=== PATIENT | male | born 1965 | race Caucasian/White ===

== ENCOUNTER 2020-10-08 13:01 | Emergency (ER) | payer OTHER ==
[~2020-10-08] VITALS: Ht 193 cm; Wt 104.3 kg
--- NOTE | ~2020-10-08 | EMS ---
[facility] [place] [address] EMS Patient Care Report Name: SANDRA CHENG Room: [facility]#: [id number] Admission: 10/08/20 Attend Phys: Discharge: 10/08/20 Date of : 63 Report #: [id number] THIS REPORT FOR: //name// Report Transmitted: 10/13/2020 10:19 EMS Care Summary [employer] [facility] Incident [phone] @ 10/08/2020 12:17 [address]ident [address] [place] [address] Patient SANDRA CHENG Male, 55 Years 1965 Patient Address Patient History Alcohol Abuse, Patient Allergies No known allergies, Patient Medications Ibuprofen, Chief Complaint chest pain Disposition Transported No Lights/[place] Dispatch Reason Chest Pain (Non-Traumatic) Transported To [facility] Narrative 55 y/o male pt found sitting upright in car upon EMS arrival. Pt was alert and oriented and complained of chest pain and vomiting beginning about 20 minutes prior to EMS arrival. Pt also complains of shortness of breath. Pt was moved to cot and placed in ambulance for further assessment. Once in ambulance, initial vitals were assessed and he was placed on classroom monitor. 12-Lead EKG was attempted but took longer than expected to obtain due to severe artifact from [address] [place] [address] EMS Patient Care Report Name: SANDRA CHENG Room: [facility]#: [id number] Admission: 10/08/20 Attend Phys: Discharge: 10/08/20 Date of : 63 Report #: [id number] patient movement. Pt was laid flat and EKG was obtained showing NSR. Lung sounds were assessed revealing expiratory wheezing in upper lobes. Room air oxygen saturation was at 85%, so patient was placed on 3LPM via NC. An 18G IV was established in the LAC with saline lock. Pt admits to daily ETOH use and admits to current ETOH use jusr prior to our arrival. He states that he drinks about 20-24 beers/day. He also states that he has Hep C. He denies any prescription medications currently, but later states that he would take them if "they would just give them to me." He also states that he is homeless and sleeps outside daily. Pt remained alert and oriented throughout transport and was continuously monitored and reassessed with no further complaints or changes. Pt denies nausea medication when offered. Pt care was transferred to RN upon arrival to [facility]. Initial Vitals @12:30P: 81,R: 18,BP: 136/96,Pain: 8/10,GCS: 15,Glucose: 117,SpO2: 85,Revised Trauma: 12,LA Suspected: false @12:49P: 77,R: 18,BP: 119/83,Pain: 8/10,GCS: 15,Temp: 97.1F,SpO2: 92,Revised Trauma: 12,LA Suspected: false @12:52P: 80,R: 18,BP: 145/122,Pain: 8/10,GCS: 15,SpO2: 91,Revised Trauma: 12, Impression Chest Pain / Discomfort Procedures @12:42Saline Lock 10cc (18 ga) Site: Antecubital-LeftResponse: UnchangedSucceeded Timeline 12:17,Call Received 12:17,Dispatched 12:19,En Route 12:25,Initial Responder On Scene 12:25,On Scene 12:26,At Patient 12:30,BP: 136/96 M,PULSE: 81,RR: 18 R,SPO2: 85 Ox,ETCO2: ,B,PAIN: 8,GCS: 15, 12:37,Depart Scene 12:42,Saline Lock 10cc 18 ga Site: Antecubital-Left,Response: UnchangedSucceeded, 12:49,BP: 119/83 M,PULSE: 77,RR: 18 R,SPO2: 92 Ox,ETCO2: ,BG: ,PAIN: 8,GCS: 15, 12:52,BP: 145/122 M,PULSE: 80,RR: 18 R,SPO2: 91 Ox,ETCO2: ,BG: ,PAIN: 8,GCS: 15, 12:57,At Destination 13:00,Transfer Patient 13:29,[place] [address] EMS Patient Care Report Name: SANDRA CHENG [id number] Admission: 10/08/20 Attend Phys: Discharge: 10/08/20 Date of : 63 Report #: [id number] 13:29,In District Disclaimer v1.1 Copyright 202 [employer] This EMS Care Summary contains data elements from the applicable legal record (which may be displayed differently). It is designed to provide pertinent information for the following purposes: continuity of care, clinical quality, and state data reporting. The complete legal record is available to ED staff and administrators of the receiving hospital in [employer]'s Patient Tracker. All data is provided "as is."
--- NOTE | ~2020-10-08 | EMS ---
[address] [address] EMS Patient Care Report Name: SANDRA CHENG Room: [facility] M.R.#: [id number] Admission: Attend Phys: Discharge: Date of : 63 Report #: [id number] THIS REPORT FOR: //name// Report Transmitted: 10/08/2020 12:55 EMS Care Summary [place] [employer] [facility] Incident [phone] @ 10/08/2020 12:17 Incident Location [address] [place] [address] Patient SANDRA CHENG Male, 55 Years 1965 Patient Address Patient History Alcohol Abuse, Patient Allergies No known allergies, Patient Medications Ibuprofen, Chief Complaint chest pain Disposition Transported No Lights/[place] Dispatch Reason Chest Pain (Non-Traumatic) Transported To [facility] Narrative 55 y/o male pt found sitting upright in car upon EMS arrival. Pt was alert and oriented and complained of chest pain and vomiting beginning about 20 minutes prior to EMS arrival. Pt also complains of shortness of breath. Pt was moved to cot and placed in ambulance for further assessment. Once in ambulance, initial vitals were assessed and he was placed on nuclear monitoring technician. 12-Lead EKG was attempted but took longer than expected to obtain due to severe artifact from [address] [address] EMS Patient Care Report Name: SANDRA CHENG Room: [facility].#: [id number] Admission: Attend Phys: Discharge: Date of : 63 Report #: [id number] patient movement. Pt was laid flat and EKG was obtained showing NSR. Lung sounds were assessed revealing expiratory wheezing in upper lobes. Room air oxygen saturation was at 85%, so patient was placed on 3LPM via NC. An 18G IV was established in the LAC with saline lock. Pt admits to daily ETOH use and admits to current ETOH use jusr prior to our arrival. He states that he drinks about 20-24 beers/day. He also states that he has Hep C. He denies any prescription medications currently, but later states that he would take them if "they would just give them to me." He also states that he is homeless and sleeps outside daily. Pt remained alert and oriented throughout transport and was continuously monitored and reassessed with no further complaints or changes. Pt denies nausea medication when offered. Pt care was transferred to RN upon arrival to [place] [facility]. Initial Vitals @12:30P: 81,R: 18,BP: 136/96,Pain: 8/10,GCS: 15,Glucose: 117,SpO2: 85,Revised Trauma: 12,IA Suspected: false @12:49P: 77,R: 18,BP: 119/83,Pain: 8/10,GCS: 15,Temp: 97.1F,SpO2: 92,Revised Trauma: 12,IA Suspected: false @12:52P: 80,R: 18,BP: 145/122,Pain: 8/10,GCS: 15,SpO2: 91,Revised Trauma: 12, Impression Chest Pain / Discomfort Procedures @12:42Saline Lock 10cc (18 ga) Site: Antecubital-LeftResponse: UnchangedSucceeded Timeline 12:17,Call Received 12:17,Dispatched 12:19,En Route 12:25,Initial Responder On Scene 12:25,On Scene 12:26,At Patient 12:30,BP: 136/96 M,PULSE: 81,RR: 18 R,SPO2: 85 Ox,ETCO2: ,B,PAIN: 8,GCS: 15, 12:37,Depart Scene 12:42,Saline Lock 10cc 18 ga Site: Antecubital-Left,Response: UnchangedSucceeded, 12:49,BP: 119/83 M,PULSE: 77,RR: 18 R,SPO2: 92 Ox,ETCO2: ,BG: ,PAIN: 8,GCS: 15, 12:52,BP: 145/122 M,PULSE: 80,RR: 18 R,SPO2: 91 Ox,ETCO2: ,BG: ,PAIN: 8,GCS: 15, 12:57,At Destination 13:00,Transfer Patient 13:29,[place] [address] EMS Patient Care Report Name: SANDRA CHENG Room: PRE M.R.#: [id number] Admission: Attend Phys: Discharge: Date of : 63 Report #: [id number] 13:29,In District Disclaimer v1.1 Copyright 2020 [employer] This EMS Care Summary contains data elements from the applicable legal record (which may be displayed differently). It is designed to provide pertinent information for the following purposes: continuity of care, clinical quality, and state data reporting. The complete legal record is available to ED staff and administrators of the receiving hospital in [employer]'s Patient Tracker. All data is provided "as is."
[~2020-10-08 13:01] MED LIST: PERCOCET 5-3251 EACH PO
[2020-10-08 13:16] LABS: HEMOGLOBIN 12.5 gm/dL (14.0-18.0); MPV 7.3 fl. (7.2-11.1); RDW-CV 14.6 % (10.5-14.5); WBC 9.9 thou/uL (4.0-11.0)
[2020-10-08 13:19] LABS: HEMATOCRIT 37.8 % (42.0-52.0); MCH 33.2 pg (26.0-34.0); MCHC 33.1 g/dL (28.0-37.0); MCV 100.3 fL (80.0-100.0); NUCLEATED RBCS 0 /100WBC; PLATELET COUNT* 172 thou/uL (150-400); RBC 3.77 mil/uL (4.50-6.00)
[2020-10-08 13:25] LABS: CALCIUM 7.6 mg/dL (8.5-10.1); CREATININE 0.6 mg/dL (0.6-1.3)
[2020-10-08 13:38] LABS: ALBUMIN 3.2 g/dL (3.4-5.0); TOTAL BILIRUBIN 0.3 mg/dL (<0.1-1.0); TOTAL PROTEIN 7.5 g/dL (6.4-8.2)
[2020-10-08 13:51] LABS: ABSOLUTE BASOPHILS 0.1 thou/uL (0.0-0.2); ABSOLUTE EOSINOPHILS 0.2 thou/uL (0.0-0.7); ABSOLUTE LYMPHOCYTES 2.5 thou/uL (0.8-5.3); ABSOLUTE MONOCYTES 0.9 thou/uL (0.0-1.2); ABSOLUTE NEUTROPHILS 6.2 thou/uL (1.6-8.1); PLATELET ESTIMATE ADEQUATE
[2020-10-08 13:52] LABS: ANISOCYTOSIS 1+; POIKILOCYTOSIS 1+
[2020-10-08 15:29] VITALS: BP 115/69
--- NOTE | 2020-10-09 10:03 | EKG ---
[place] [address] ELECTROCARDIOGRAM REPORT Name: WILBUR CHENG Room: [facility]#: [id number] Admission: 10/08/20 Attend Phys: Discharge: 10/08/20 Date of : 63 Date of Service: 10/08/20 1310 Report #: [id number] THIS REPORT FOR: //name// [facility] ED Test Date: 2020-10-08 Test Time: 13:10:06 Pat Name: WILBUR CHENG Department: Room: Gender: Community Liaison Officer: S : 1965 Requested By: Bernardino Ma Order Number: [id number] MD: Wilbur Farias Measurements Intervals [place] Rate: 78 P: 45 OR: 175 QRS: 44 QRSD: 95 T: 56 QT: 386 QTc: 440 Interpretive Statements Sinus rhythm Probable left atrial enlargement No previous ECG available for comparison Electronically Signed On 10-09-2020 10:03:02 CDT by Wilbur Farias [email or web address] <ELECTRONICALLY SIGNED> By: Wilbur Farias MD, MERGED WITH [facility] 10/09/20 1003 1310 1310 Wilbur Farias MD, FACC /EPI
== END 2020-10-08 15:30 | disposition home or self-care (01) ==
LOC: M.ERS 13:01
PROVIDERS: Family Medicine
DX: R07.89 Other chest pain (principal); F10.129 Alcohol abuse with intoxication, unspecified; F19.90 Other psychoactive substance use, unspecified, uncomplicated